=== PATIENT | male | born 1980 | race Caucasian/White ===

== ENCOUNTER 2020-04-16 09:18 | Outpatient (REF) | payer OTHER, SELFPAY ==
[2020-04-16 11:05] LABS: Alanine Aminotransferase 42 U/L (0-40); Albumin Level 4.3 g/dL (3.5-5.0); Alkaline Phosphatase 68 U/L (39-117); Anion Gap 12 (12-20); Aspartate Amino Transferase 31 U/L (5-37); Bilirubin Total 0.5 mg/dL (0.0-1.0); Blood Urea Nitrogen 11 mg/dL (9-16); Calcium 9.1 mg/dL (8.4-10.2); Carbon Dioxide 26 mmol/L (22-29); Chloride 105 mmol/L (96-108); Cholesterol 204 mg/dL; Estimated Glomerular Filt Rate > 60; Glucose Fasting 96 mg/dL (60-99); HDL Cholesterol 54 mg/dL; LDL Cholesterol Calculated 128 mg/dl; Potassium 4.6 mmol/l (3.3-5.1); Sodium 138 mmol/L (135-145); Total Protein 7.2 g/dL (6.5-8.0); Triglycerides 110 mg/dL
[2020-04-16 11:28] LABS: TSH reflex Free T4 1.24 mIU/mL (0.32-4.0)
== END 2020-04-16 09:19 | disposition home or self-care (01) ==
LOC: HO.LAB 09:18
PROVIDERS: PCP Internal Medicine; Visit Provider Internal Medicine
DX: E66.09 Other obesity due to excess calories (principal)
CPT/HCPCS: 36415; 80053; 80061; 84443

== ENCOUNTER 2020-12-03 08:22 | Emergency (ER) | payer OTHER, SELFPAY ==
--- NOTE | ~2020-12-03 | XR_ITS ---
EXAMINATION: XR HAND, LEFT CLINICAL INFORMATION: Schriever left index finger. COMPARISON: None TECHNIQUE: PA, lateral, and oblique views of the left hand. FINDINGS: There is no evidence of acute fracture or dislocation of the left hand. A single prong of a fishhook is seen within the soft tissues dorsal aspect of the second middle phalanx with no definite bony abnormality appreciated. Joint spaces are maintained. No erosive changes. XR/XR hand LT min 3V IMPRESSION: [place] within the dorsal soft tissues about the left second middle phalanx without underlying bony abnormality appreciated.
[2020-12-03 08:51] VITALS: BP 129/75; PULSE 67; RESP 16; TEMP 36.2; O2SAT 98; BMI 29.9
--- NOTE | 2020-12-03 08:57 | ED.SKABFB ---
HPI - Skin/Abscess/Foreign Bdy General Chief complaint: Skin/Abscess/Foreign Body Stated complaint: fish hook in finger Time Seen by Provider: 12/03/20 08:55 Source: patient Mode of arrival: ambulatory Limitations: no limitations History of Present Illness HPI narrative: 40-year-old male previously healthy here with fishhook to left index finger. Patient was cleaning his tackle box and the hook got stuck on his pants and when he went to grab it it punctured his left finger and he is unable to remove it. Tetanus not updated Related Data Allergies Allergy/AdvReac Type Severity Reaction Status Date / Time No Known Allergies Allergy Verified 12/03/20 08:51 Review of Systems Review of Systems: Yes all other systems are reviewed and are negative Constitutional: Constitutional: Reports no additional constitutional complaints, Denies body ache(s), Denies chills, Denies fever(s), Denies headache(s) and Denies weakness Eyes: Eyes: Reports no additional eye complaints and Denies change in vision ENT: Reports system reviewed and no additional complaints, except as documented, Denies dizziness, Denies headache(s), Denies nasal congestion, Denies nasal discharge and Denies neck pain Cardiovascular: Cardiovascular: Reports no additional cardiovascular complaints, Denies chest pain, Denies leg edema and Denies dyspnea Respiratory: Respiratory: Reports no additional respiratory complaints, Denies cough and Denies dyspnea Gastrointestinal: Gastrointestinal: Reports no additional gastrointestinal complaints, Denies abdominal pain, Denies diarrhea, Denies nausea and Denies vomiting Genitourinary: Genitourinary: Denies urinary incontinence Musculoskeletal: Musculoskeletal: Reports no additional musculoskeletal complaints, Denies back pain, Denies arthralgias, Denies joint swelling, Denies neck pain, Denies numbness and Denies tingling Comments: +puncture wound left index finger with hook present Integumentary/Breasts: Skin/Breast: Reports system reviewed and no additional complaints, except as docu and Denies rash Neurologic: Reports system reviewed and no additional complaints, except as documented, Denies Abnormal speech present, Denies dizziness, Denies headache(s), Denies numbness, Denies tingling and Denies weakness PMFSH Past Medical History Attestation statement: The following information was validated with the patient. Source: old records reviewed and nursing notes reviewed Medical History Kidney stone Social History Social History Smoked in Last 30 Days: No Use of substances other than those prescribed or required for medical reasons: No Advance Directives: No Advance Directives Information Provided: No Physical Exam Vital Signs: Vital Signs: Last Vital Signs Temp 97.2 F 12/03/20 08:51 Pulse 67 12/03/20 08:51 Resp 16 12/03/20 08:51 BP 129/75 12/03/20 08:51 Pulse Ox 98 12/03/20 08:51 Body Mass Index 29.9 Const: General: cooperative, healthy appearing, comfortable and no acute distress Orientation/consciousness: patient oriented x3 Limitations: no limitations HENMT: Head: Yes normal to inspection Ears: hearing grossly normal bilaterally General nose exam: Normal external nose present Face and sinus: Yes normal facial exam Mouth: Normal oral and palatal mucosa present Throat: Yes posterior oropharynx normal Eyes: General: appearance normal, both eyes and all related structures Pupils: Equal, round and reactive pupils present Neck: Neck: Yes normal visual inspection Chest: Chest palpation & inspection: normal inspection of the chest Resp: Effort & Inspection: normal respiratory effort Auscultation: clear to auscultation bilaterally Cardio: Rate: regular rate Rhythm: regular rhythm Peripheral pulses: Peripheral pulses 2+ throughout GI: Inspection: Yes normal to inspection Palpation (GI): Soft to palpation and nontender Auscultation: normal bowel sounds Back/Spine/Pelvis: Thoracic/Lumbar Spine: thoracic and lumbar spine normal to inspection Skin: General skin exam: no rashes or lesions noted Neuro: General: patient oriented x3, no focal motor deficits and normal sensation to monofilament Cranial nerves: Yes Equal, round and reactive pupils present Cognition (Neuro): normal cognition Speech: No Abnormal speech present Gait exam (Neuro): Normal gait present Motor exam (neuro): 5/5 motor strength present throughout Extrem: Other: To the dorsal distal aspect of the left index finger there is a fishing lower present with a single hook penetrating the finger. Full range of motion. Normal cap refill. Neurovascularly intact distally. General: Yes normal to inspection Course Course Course Narrative: 40-year-old male here with fishhook to the left index finger. Will need x-ray, tetanus updated. 1010-No bony abnormality on x-ray. Digital block used on digit. Small incision made and hook removed. Sutures placed. Reviewed worrisome signs/symptoms with patient and when to return to ED. Comfortable with discharge home. Procedures Foreign Body Removal Site: hand (left index rigoberto ) Description of foreign body: fish hook Technique: removal with forceps and incision made to facilitate removal Confirmed by:: direct visualization Complications: none Neurovascular: normal distal pulse, normal capillary fill, distal light touch sensation intact, distal motor function normal, no signs of compartment syndrome and no change from pre-procedure Laceration Laceration 1: Site: hand (dorsal index finger, surgically made with scalpel for removal FB) Side (If applicable): left Size (cm): 1 Description: linear Depth: simple, single layer Local Anesthetic: other anesthetic (digital block) Skin layer closed with: vicryl Size (cm): 6-0 Number of sutures: 2 Technique: simple, interrupted Nerve Block Nerve Block 1: Local Anesthetic: lidocaine 2% Amount of anesthesia used (mL): 5 Side: left (index finger ) Procedure Successful: Yes Patient Tolerated Procedure: well Complications: none MDM - Skin/Abscess/Foreign Bdy Medical Records Attestation: I reviewed the patient's medical records. Lab Data Attestation: I reviewed the patient's lab results. Imaging Data hand xray left: Attestation: I personally reviewed and interpreted this imaging study as follows: Radiologist's impression: XR/XR hand LT min 3V IMPRESSION: [place] within the dorsal soft tissues about the left second middle phalanx without underlying bony abnormality appreciated. Discharge Plan Discharge Clinical Impression: Foreign body Patient Disposition: Home, Self-Care Instructions: Soft Tissue Foreign Body (ED) Additional Instructions: Sutures out in 7-10 days Referrals: Padmini Huerta MD [Primary Care Provider] - 2 days Interventions: ED Discharge Assessment Last Done: 12/03/20 09:51 Discharge Date/Time: 12/03/20 09:52
[2020-12-03] MEDS: Diphth,Pertus(ACell),Tet Adult 0.5 ML SYRINGE IM (09:06)
[2020-12-03] MEDS: Lidocaine HCl 2 % MPF 5 ML VIAL SUBCUT (09:07)
== END 2020-12-03 09:52 | disposition home or self-care (01) ==
PROVIDERS: Emergency Provider Emergency Medicine; PCP Internal Medicine
DX: S61.241A Puncture wound with foreign body of left index finger without damage to nail, initial encounter (principal); W45.8XXA Other foreign body or object entering through skin, initial encounter; Y93.19 Activity, other involving water and watercraft; Y92.89 Other specified places as the place of occurrence of the external cause; Y99.8 Other external cause status
CPT/HCPCS: 10120; 20520; 64450; 73130; 90471; 90715; 99283; 99284

== ENCOUNTER 2022-08-22 08:00 | Outpatient (RCR) | payer OTHER, SELFPAY | END 2022-08-22 09:44 | disposition home or self-care (01) | LOC: HO.OT 08:00 | PROVIDERS: PCP Internal Medicine; Visit Provider Orthopaedic Surgery | DX: M72.0 Palmar fascial fibromatosis [Dupuytren] (principal) | CPT/HCPCS: 97110; 97140; 97166; 97530; 97760 ==

== ENCOUNTER 2022-11-17 08:59 | Outpatient (REF) | payer OTHER, SELFPAY ==
[2022-11-17 10:08] LABS: Alanine Aminotransferase 40 U/L (0-40); Albumin Level 4.4 g/dL (3.5-5.0); Alkaline Phosphatase 58 U/L (39-117); Anion Gap 14 (12-20); Aspartate Amino Transferase 29 U/L (5-37); Bilirubin Total 0.8 mg/dL (0.0-1.0); Blood Urea Nitrogen 15 mg/dL (9-16); Calcium 9.7 mg/dL (8.4-10.2); Carbon Dioxide 24 mmol/L (22-29); Chloride 105 mmol/L (96-108); Cholesterol 221 mg/dL; Estimated Glomerular Filt Rate > 60; Glucose Fasting 96 mg/dL (60-99); HDL Cholesterol 55 mg/dL; LDL Cholesterol Calculated 150 mg/dl; Potassium 4.5 mmol/L (3.3-5.1); Sodium 138 mmol/L (135-145); Total Protein 7.3 g/dL (6.5-8.0); Triglycerides 81 mg/dL
== END 2022-11-17 09:00 | disposition home or self-care (01) ==
LOC: HO.LAB 08:59
PROVIDERS: PCP Internal Medicine; Visit Provider Internal Medicine
DX: Z00.00 Encounter for general adult medical examination without abnormal findings (principal); E78.5 Hyperlipidemia, unspecified
CPT/HCPCS: 36415; 80053; 80061

== ENCOUNTER 2023-09-17 11:07 | Outpatient (AMB) | payer OTHER, SELFPAY ==
--- NOTE | 2023-09-17 12:14 | MHC.OFFWIV ---
Intake Vital Signs 09/17/23 12:19 Height 5 ft 11 in Weight 234 lb BMI 32.6 BP 120/72 Blood Pressure Location Lt brachial Position Sitting Pulse 79 Pulse Source Pulse Oximeter Temp 97.6 F Temp Source Temporal Artery Scan Pulse Oximetry (%) 97 Oxygen Delivery Method Room Air Intake Visit Reasons: EST/congeston and ear blockage ([phone]) Intake Note: Pt is here today for congestion and ear blockage, Pt noticed symptoms Patient Tobacco Use Status: Never used Tobacco Allergies No Known Allergies Allergy (Verified 09/17/23 12:34) Medication List - Last Reconciled 09/17/23 by Rogelio Kate MD dextroamphetamine-amphetamine 30 mg ER 1 cap PO DAILY Do you need a note to return to daycare/school/sports/work: No HPI EST/congeston and ear blockage ([phone]) HPI Details 42-year-old male presents to the office for a sick visit. Patient is reporting symptoms of congestion and sore throat. He had a viral respiratory infection a week ago with fever and chills. Though symptoms have subsided. Continues to have ear congestion. [facility] Medical History (Updated 10/17/22 @ 07:55 by Padmini Hunter MD) Obesity (BMI 30-39.9) Kidney stone Surgical History History of hand surgery History of lithotripsy Family History Father CVD (cardiovascular disease) Mother No problems noted. Social History Housing: House Alcohol intake: current Alcohol intake frequency: a few times a month Alcohol type: beer, wine and hard liquor Patient Tobacco Use Status: Never used Tobacco e-Cigarette/Vaping Use: Never Used Second Hand Smoke Exposure: No service: No Current occupational status: employed Current occupational exposures/hazards: No Cognitive needs: No Hearing needs: No Vision needs: No Physical Exam Vital Signs: Last Vital Signs Temp 97.6 F 09/17/23 12:19 Pulse 79 09/17/23 12:19 BP 120/72 09/17/23 12:19 Pulse Ox 97 09/17/23 12:19 Oxygen Delivery Method Room Air 09/17/23 12:19 BMI result Body Mass Index 32.6 Const General: cooperative and healthy appearing Nutritional Appearance: well nourished Orientation/consciousness: patient oriented x3 Limitations: no limitations HEENT Head: Yes normal to inspection Eyes General: appearance normal, both eyes and all related structures Neck Neck: Yes normal visual inspection Chest Chest palpation & inspection: normal palpation of entire chest wall Resp Effort & Inspection: normal respiratory effort Neuro General: patient oriented x3 Assessment & Plan Assessment & Plan (1) Upper respiratory tract infection: Code(s): J06.9 - Acute upper respiratory infection, unspecified Plan: No antibiotics needed. Self-limiting illness. If symptoms do not improve to follow-up here. Coding Level of Care Code Est Pt Level 3 (33562) Diagnoses Upper respiratory tract infection J06.9
[2023-09-17 12:19] VITALS: BP 120/72; PULSE 79; TEMP 36.4; O2SAT 97; BMI 32.6
== END 2023-09-17 13:46 | disposition home or self-care (01) ==
PROVIDERS: PCP Internal Medicine; Visit Provider Internal Medicine
DX: J06.9 Acute upper respiratory infection, unspecified (principal)
CPT/HCPCS: 99213

== ENCOUNTER 2023-10-23 07:22 | Outpatient (AMB) | payer OTHER, SELFPAY ==
[2023-10-23 07:31] VITALS: BP 132/80; BMI 33.2
--- NOTE | 2023-10-23 07:31 | A.OFFPC_ITS ---
Vital Signs 10/23/23 07:31 Height 5 ft 11 in Weight 238 lb BMI 33.2 BP 132/80 Blood Pressure Location Lt brachial Position Sitting Intake Visit Reasons: Aunn[place] P.E Intake Note: Patient here for an annual physical exam [employer] Required: No Accompanied by: Self / Same As Patient Allergies No Known Allergies Allergy (Verified 10/23/23 07:45) Medication List - Last Reconciled 10/23/23 by Padmini Hunter MD dextroamphetamine-amphetamine 30 mg ER 1 cap PO DAILY Tobacco use date assessed: 10/23/23 Dental Screening Dental Screen Date: 10/23/23 Did you have a dental visit in the last 12 months?: Yes Did you have a dental problem in the last 6 months where you did not have access to dental care?: No Was dental information given to patient?: Patient has dentist HPI HPI Comments History of Present Illness Details This is a 42-year-old male that comes for his physical exam. Denies any chest pain or shortness of breath. Has nephrolithiasis and follows with Urology every 6 months. Has elevated cholesterol that lipid panel will be recheck. No need for statins as of now. [facility] Medical History Obesity (BMI 30-39.9) Kidney stone Surgical History History of hand surgery History of lithotripsy Family History Father CVD (cardiovascular disease) Mother No problems noted. Social History Housing: House Alcohol intake: current Alcohol intake frequency: a few times a month Alcohol type: beer, wine and hard liquor Patient Tobacco Use Status: Never used Tobacco e-Cigarette/Vaping Use: Never Used Second Hand Smoke Exposure: No service: No Current occupational status: employed Current occupational exposures/hazards: No Cognitive needs: No Hearing needs: No Vision needs: No Questionnaire PHQ-9 Over the last 2 weeks, how often have you been bothered by any of the following problems? 1. Little interest or pleasure in doing things: not at all 2. Feeling down, depressed, or hopeless: not at all 3. Trouble falling or staying asleep, or sleeping too much: not at all 4. Feeling tired or having little energy: not at all 5. Poor appetite or overeating: not at all 6. Feeling bad about yourself - or that you are a failure or have let yourself or your family down: not at all 7. Trouble concentrating on things, such as reading the newspaper or watching television: not at all 8. Moving or speaking so slowly that other people could have noticed. Or the opposite - being so fidgety or restless that you have been moving around a lot more than usual: not at all 9. Thoughts that you would be better off or of hurting yourself in some way: not at all Total score: 0 Depression Screening Interpretation: Negative Depression Screening Done: Yes 61582 - PHQ-9 Billing: Yes Source: Developed by Drs. David Good, Yoli Al, Elian Hernandez and colleagues, with an educational marleni from [employer]. Thrive Questionnaire Date Thrive assessed: 10/23/23 I am a: Patient What is your living situation today?: I have a steady place to live Within the past 12 months, did the food you bought not last and you didn't have the money to get more?: Never true Within the past 12 months, did you worry whether your food would run out before you got money to buy more?: Never true Do you have trouble paying for medicines?: No Do you have trouble getting transportation to medical appointments?: No Do you have trouble paying your heating and electricity bill?: No Do you have trouble taking care of your child, family member or friend?: No Do you have trouble with day-to-day activities such as bathing, preparing meals, shopping, managing finances, etc.?: No Are you currently unemployed and looking for a job?: No Are you interested in more education?: No Please select the resources that you would like help with: None Currently or been in a relationship where the following occur: no concerns reported THRIVE Score: 0 AUDIT C Alcohol Use Questionnaire (AUDIT-C) 1. How often do you have a drink containing alcohol?: Monthly or less 2. How many drinks containing alcohol do you have on a typical day when you are drinking?: 1 or 2 3. How often do you have six or more drinks on one occasion?: Never Total Score: 1 Score Reviewed/Action Taken: No ZACKARY-7 AMB Questionnaire ZACKARY-7 Date ZACKARY - 7 assessed: 10/23/23 Feeling nervous, anxious, or on edge: 0 = Not at all Not being able to stop or control worryin = Not at all Worrying too much about different things: 0 = Not at all Trouble relaxin = Not at all Being so restless that it is hard to sit still: 0 = Not at all Becoming easily annoyed or irritable: 0 = Not at all Feeling afraid as if something awful might happen: 0 = Not at all Total ZACKARY-7 score (0-4 normal; 5-9 mild; 10-14 moderate; 15-21 severe): 0 Source: Developed by Drs. David Good, Yoli Al, Elian Hernandez and colleagues, with an educational marleni from [employer]. ZACKARY-7 Assessment Billing ZACKARY-7 Assessment Tool: ZACKARY-7 Assessment 31050 Review of Systems Const All systems reviewed & are unremarkable except as noted in HPI and below Eyes Reports no additional complaints, Denies change in vision and Denies other visual disturbances Card Denies chest pain at rest, Denies chest pain with activity, Denies edema, Denies irregular heart rhythm, Denies claudication, Denies dyspnea, Denies dyspnea on exertion, Denies orthopnea, Denies paroxysmal nocturnal dyspnea and Denies slow heart rate Resp Denies cough, Denies dyspnea and Denies dyspnea on exertion GI Denies abdominal pain, Denies change in bowel habits, Denies excessive flatus, Denies nausea and Denies vomiting Denies urinary hesitancy, Denies urinary incontinence and Denies urinary urgency Physical exam (Primary Care) Vital Signs: Last Vital Signs BP 132/80 10/23/23 07:31 BMI result Body Mass Index 33.2 Tobacco/Smoking Status: Tobacco use Status Tobacco use date assessed 10/23/23 10/23/23 07:38 Patient Tobacco Use Status Never used Tobacco 10/23/23 07:38 e-Cigarette/Vaping Use Never Used 10/23/23 07:38 PHQ-9: PHQ-9 Score PHQ-9: Total score 0 10/23/23 07:50 Depression Screening Interpretation: Negative Thrive Assessment: Date of Thrive Assessment Date Thrive assessed 10/23/23 10/23/23 07:38 Currently or been in a relationship where the following occur: no concerns reported Const Orientation/consciousness: patient oriented x3 HENMT Head: Yes normal to inspection, Yes normocephalic and Yes atraumatic Ears: external ears normal Eyes General: appearance normal, both eyes and all related structures Eyelids: Yes eyelids normal Conjunctivae: conjunctivae normal Neck Neck: Yes normal visual inspection and Yes supple Resp Effort & Inspection: normal respiratory effort Auscultation: clear to auscultation bilaterally Cardio Jugular venous distension: no JVD Rate: regular rate Rhythm: regular rhythm Heart sounds: S1 normal heart sound present and S2 normal heart sound present GI Inspection: Yes normal to inspection Palpation (GI): Soft to palpation and nontender Auscultation: normal bowel sounds Skin General skin exam: no rashes or lesions noted Neuro General: patient oriented x3 and no focal motor deficits Extrem General: Yes full ROM Psych Appearance: grossly normal Assessment and Plan Assessment & Plan (1) Encounter for physical examination: Code(s): Z00.00 - Encounter for general adult medical examination without abnormal findi ngs Plan: Repeat in a year. Orders: Orders Lipid Panel Today Z00.00 - Encounter for general adult medical examination without abnormal findings Comprehensive [place]. Panel Fast Today Z00.00 - Encounter for general adult medical examination without abnormal findings Coding Level of Care Code Est Pt Prev Care 40-64y(19822) Diagnoses Encounter for physical examination Z00.00 Additional Codes ZACKARY-7 Assessment Billing - ZACKARY-7 Assessment Tool: ZACKARY-7 Assessment 14428 ([id number]) Time Spent (min) 30
== END 2023-10-23 07:53 | disposition home or self-care (01) ==
PROVIDERS: Visit Provider Internal Medicine
DX: Z00.00 Encounter for general adult medical examination without abnormal findings (principal)
CPT/HCPCS: 99396

== ENCOUNTER 2023-12-30 12:06 | Outpatient (REF) | payer OTHER, SELFPAY ==
[2023-12-30 12:58] LABS: Alanine Aminotransferase 55 U/L (0-40); Albumin Level 4.4 g/dL (3.5-5.0); Alkaline Phosphatase 57 U/L (39-117); Anion Gap 10 (12-20); Aspartate Amino Transferase 46 U/L (5-37); Bilirubin Total 0.5 mg/dL (0.0-1.0); Blood Urea Nitrogen 12 mg/dL (9-16); Calcium 9.5 mg/dL (8.4-10.2); Carbon Dioxide 27 mmol/L (22-29); Chloride 107 mmol/L (96-108); Cholesterol 219 mg/dL (<200); Estimated Glomerular Filt Rate > 60; Glucose Fasting 98 mg/dL (60-99); HDL Cholesterol 51 mg/dL (>40); LDL Cholesterol Calculated 144 mg/dL (<100); Potassium 4.4 mmol/L (3.3-5.1); Sodium 140 mmol/L (135-145); Total Protein 7.7 g/dL (6.5-8.0); Triglycerides 124 mg/dL (<150)
== END 2023-12-30 12:07 | disposition home or self-care (01) ==
LOC: HO.LAB 12:06
PROVIDERS: PCP Internal Medicine; Visit Provider Internal Medicine
DX: Z00.00 Encounter for general adult medical examination without abnormal findings (principal)
CPT/HCPCS: 36415; 80053; 80061

== ENCOUNTER 2024-10-28 07:29 | Outpatient (AMB) | payer OTHER, SELFPAY ==
--- OUTSIDE RECORDS SUMMARY | 2024-10-28 07:31 | XMS_ITS | Clinical Summary ---
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 Do not crush or chew. Active Active Problems Problem Noted Date Diagnosed Date Chronic pain of left knee 11/11/2020 Immunizations Name Administration Dates Next Due Influenza, trivalent (IIV3), split virus (single-dose) PF 04/27/2020 Family History Medical History Relation Comments Heart disease Brother Heart disease Father Relation Status Comments Brother Father Mother Alive Social History Tobacco Use Types Packs/Day Years Used Date Smoking Tobacco: Never Smokeless Tobacco: Never Alcohol Use Standard Drinks/Week Comments Yes 0 (1 standard drink = 0.6 oz pur e alcohol) AUDIT-C Answer Date Recorded Q1: How often do you have a drink containing alc ohol? Monthly or less 12/22/2020 Average Number of Drinks Not on file 021 Frequency of Binge Drinking Not on file 12/13 Sex and Gender Information Value Date Recorded Sex Assigned at Not on file Legal Sex Male 8:55 AM MST Gender Identity Not on file Sexual Orientation Not on file Last Filed Vital Signs Vital Sign Reading Time Taken Comments Blood Pressure 135/85 12/08/2019 12:25 PM EDT Pulse 74 12/08/2019 12:25 PM EDT Temperature 36.7 ??C (98.1 ??F) 12/08/2019 12:25 PM E DT Respiratory Rate 16 12/08/2019 12:25 PM EDT Oxygen Saturation 96% 12/08/2019 12:25 PM EDT Inhaled Oxygen Concentration - - Weight 97.3 kg (214 lb 6.4 oz) 12/08/2019 12:25 PM EDT Height 179.6 cm (5' 10.71 ) 07/24/2019 11:33 AM EST Body Mass Index 30.15 07/24/2019 11:33 AM EST Plan of Treatment Health Maintenance Due Date Last Done Comments Hepatitis C Screening 1979 PHQ-9 Depression Screen 1991 Complete Annual HRA 11/02/1997 ZACKARY-7 Anxiety Screen 11/02/1997 DTaP,Tdap,and Td Vaccines (1 - Tdap) 11/02/1998 Annual Preventive Exam 04/12/2021 0, 04/08/2019, 03/31/2018, Additional history exists COVID-19 Vaccine (2023-2 5 season) 2024 Influenza Vaccine (Season Ended) 2025 04/27/20 20 RSV Vaccine (SCDM) (1 - 1-do se 75+ series) 11/02/2054 Insurance [address] [place] [id number] [employer] Care Teams Glass Block Installer Relationship Specialty Start Date End Date Padmini Huerta PCP - General 07/24/19
[2024-10-28 07:32] VITALS: BP 128/88; PULSE 78; O2SAT 98; BMI 33.6
--- NOTE | 2024-10-28 07:32 | MHC.PC.OV ---
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 Accompanied by: Self / Same As Patient Allergies No Known Allergies Allergy (Verified 10/28/24 07:39) Medication List - Last Reconciled 10/28/24 by Padmini Hunter MD dextroamphetamine-amphetamine 30 mg ER 1 cap PO DAILY Tobacco use date assessed: 10/28/24 Dental Screening Dental Screen Date: 10/28/24 Did you have a dental visit in the last 12 months?: Yes Did you have a dental problem in the last 6 months where you did not have access to dental care?: No Was dental information given to patient?: Patient has dentist HPI HPI Comments History of Present Illness Details The patient is a 43-year-old male presenting for a wellness visit for a physical examination. The patient's medical history is significant for Attention-Deficit/Hyperactivity Disorder (ADHD) managed with Adderall 30 mg. The patient reports that the Adderall which has not cause elevated blood pressure or insomnia as he takes it early in the morning. The patient denies any allergies to medication. Past surgical history includes left hand surgery and lithotripsy for kidney stones. The patient notes a routine blood work performed last year which showed mildly elevated liver enzymes and a slight increase in cholesterol levels compared to previous years. However, he mentions that no medication was required to address the cholesterol levels as it was deemed better than results from 2022. The patient does not have a smoking history but consumes alcoholic beverages, such as beer, wine, or hard liquor, a few times monthly, typically one or two times per weekend. He denies experiencing anxiety but admits to occasional issues with sleep and feelings of fatigue. Regarding family history, the patient's father had heart disease and has since passed, whereas the mother reportedly has no medical problems. - Tdap vaccination updated in 2020; next dose due in 2030 - Encouraged monitoring of body composition to differentiate between muscle gain and fat - Blood pressure noted as good; regular monitoring recommended - Advised routine recheck of liver enzymes and cholesterol due to past mild elevation [facility] Medical History Obesity (BMI 30-39.9) Kidney stone Surgical History History of hand surgery History of lithotripsy Family History Father CVD (cardiovascular disease) Mother No problems noted. Social History Housing: House Alcohol intake: current Alcohol intake frequency: a few times a month Alcohol type: beer, wine and hard liquor Patient Tobacco Use Status: Never used Tobacco Tobacco use type: Cigarette e-Cigarette/Vaping Use: Never Used Second Hand Smoke Exposure: No service: No Current occupational status: employed Current occupational exposures/hazards: No Cognitive needs: No Hearing needs: No Vision needs: No Questionnaire PHQ-9 Over the last 2 weeks, how often have you been bothered by any of the following problems? 1. Little interest or pleasure in doing things: not at all 2. Feeling down, depressed, or hopeless: not at all 3. Trouble falling or staying asleep, or sleeping too much: several days 4. Feeling tired or having little energy: several days 5. Poor appetite or overeating: not at all 6. Feeling bad about yourself - or that you are a failure or have let yourself or your family down: not at all 7. Trouble concentrating on things, such as reading the newspaper or watching television: not at all 8. Moving or speaking so slowly that other people could have noticed. Or the opposite - being so fidgety or restless that you have been moving around a lot more than usual: not at all 9. Thoughts that you would be better off or of hurting yourself in some way: not at all Total score: 2 Depression Screening Interpretation: Negative Depression Screening Done: Yes 71017 - PHQ-9 Billing: Yes Source: Developed by Drs. David Good, Yoli Al, Elian Hernandez and colleagues, with an educational marleni from [employer]. Thrive Questionnaire Date Thrive assessed: 10/28/24 I am a: Patient What is your living situation today?: I have a steady place to live Within the past 12 months, did the food you bought not last and you didn't have the money to get more?: Never true Within the past 12 months, did you worry whether your food would run out before you got money to buy more?: Never true Do you have trouble paying for medicines?: No Do you have trouble getting transportation to medical appointments?: No Do you have trouble paying your heating and electricity bill?: No Do you have trouble taking care of your child, family member or friend?: No Do you have trouble with day-to-day activities such as bathing, preparing meals, shopping, managing finances, etc.?: No Are you currently unemployed and looking for a job?: No Are you interested in more education?: No Please select the resources that you would like help with: None Currently or been in a relationship where the following occur: No concerns reported THRIVE Score: 0 AUDIT C Alcohol Use Questionnaire (AUDIT-C) 1. How often do you have a drink containing alcohol?: Monthly or less 2. How many drinks containing alcohol do you have on a typical day when you are drinking?: 1 or 2 3. How often do you have six or more drinks on one occasion?: Never Total Score: 1 Score Reviewed/Action Taken: No ZACKARY-7 AMB Questionnaire ZACKARY-7 Date ZACKARY - 7 assessed: 10/28/24 Feeling nervous, anxious, or on edge: 0 = Not at all Not being able to stop or control worryin = Not at all Worrying too much about different things: 0 = Not at all Trouble relaxin = Not at all Being so restless that it is hard to sit still: 0 = Not at all Becoming easily annoyed or irritable: 0 = Not at all Feeling afraid as if something awful might happen: 0 = Not at all Total ZACKARY-7 score (0-4 normal; 5-9 mild; 10-14 moderate; 15-21 severe): 0 Source: Developed by Drs. David Good, Yoli Al, Elian Hernandez and colleagues, with an educational marleni from [employer]. ZACKARY-7 Assessment Billing ZACKARY-7 Assessment Tool: ZACKARY-7 Assessment 74496 Review of Systems Const All systems reviewed & are unremarkable except as noted in HPI and below Card Denies chest pain at rest, Denies chest pain with activity, Denies edema, Denies irregular heart rhythm, Denies claudication, Denies dyspnea, Denies dyspnea on exertion, Denies orthopnea, Denies paroxysmal nocturnal dyspnea and Denies slow heart rate Resp Denies cough, Denies dyspnea and Denies dyspnea on exertion GI Denies abdominal pain, Denies change in bowel habits, Denies excessive flatus, Denies nausea and Denies vomiting Denies urinary hesitancy, Denies urinary incontinence and Denies urinary urgency Musc Denies atrophy, Denies deformity and Denies limited range of motion Physical exam (Primary Care) Vital Signs: Last Vital Signs Pulse 78 10/28/24 07:32 BP 128/88 10/28/24 07:32 Pulse Ox 98 10/28/24 07:32 Oxygen Delivery Method Room Air 10/28/24 07:32 BMI result Body Mass Index 33.6 Tobacco/Smoking Status: Tobacco use Status Tobacco use date assessed 10/28/24 10/28/24 07:36 Patient Tobacco Use Status Never used Tobacco 10/28/24 07:36 Tobacco use type Cigarette 10/28/24 07:36 e-Cigarette/Vaping Use Never Used 10/28/24 07:36 PHQ-9: PHQ-9 Score PHQ-9: Total score 2 10/28/24 07:42 Depression Screening Interpretation: Negative Thrive Assessment: Date of Thrive Assessment Date Thrive assessed 10/28/24 10/28/24 07:36 Currently or been in a relationship where the following occur: No concerns reported [facility] Head: Yes normal to inspection, Yes normocephalic and Yes atraumatic Ears: external ears normal Eyes General: appearance normal, both eyes and all related structures Eyelids: Yes eyelids normal Conjunctivae: conjunctivae normal Neck Neck: Yes normal visual inspection and Yes supple Resp Effort & Inspection: normal respiratory effort Auscultation: clear to auscultation bilaterally Cardio Jugular venous distension: no JVD Rate: regular rate Rhythm: regular rhythm Heart sounds: S1 normal heart sound present and S2 normal heart sound present GI Inspection: Yes normal to inspection Palpation (GI): Soft to palpation and nontender Auscultation: normal bowel sounds Skin General skin exam: no rashes or lesions noted Neuro General: no focal motor deficits Extrem General: Yes full ROM Psych Appearance: grossly normal Coding Level of Care Code Est Pt Prev Care 40-64y(68124) Diagnoses Encounter for physical examination Z00.00 Additional Codes ZACKARY-7 Assessment Billing - ZACKARY-7 Assessment Tool: ZACKARY-7 Assessment 80177 ([id number]) PHQ-9 - 61655 - PHQ-9 Billing: Yes ([id number]) Time Spent (min) 30 Assessment & Plan Assessment & Plan (1) Encounter for physical examination: Code(s): Z00.00 - Encounter for general adult medical examination without abnormal findings Category: Medical Plan Body composition monitoring was recommended to achieve balanced weight management through differentiating muscle versus fat mass.: Patient was informed and verbally consented to the use of an ambient scribe for clinic note documentation during this visit. I discussed the continued prescription of Adderall for ADHD management, outlining its benefits in managing energy levels with no side effect impact on blood pressure or sleep pattern for this patient. Concerns were addressed regarding potential side effects previously experienced, and the patient was advised to report any changes in symptoms. Suggestions about lifestyle adjustments were discussed, especially exercise impact on body weight in context with muscle gain versus fat increment. Regarding mildly elevated liver enzymes and cholesterol found last year, advice included lifestyle measures such as dietary and physical activity regulation. The patient consented to follow-up blood work for further evaluation within the next three months to affirm current liver and cholesterol status. Family history of heart disease was considered, endorsing a proactive approach to cardiovascular health through lifestyle management. Orders: Orders Lipid Panel Today E78.5 - Hyperlipidemia, unspecified Comprehensive [place]. Panel Fast Today Z00.00 - Encounter for general adult medical examination without abnormal findings Patient Instructions: - Take Adderall 30 mg as scheduled early in the morning - Monitor blood pressure regularly - Maintain Tdap vaccination schedule - Undergo fasting blood work for liver and cholesterol evaluation within three months - Limit alcoholic beverages to moderation, ideally not exceeding occasional weekend consumption - Engage in regular physical exercise such as [employer]
== END 2024-10-28 07:50 | disposition home or self-care (01) ==
LOC: HO.HMCH 07:30
PROVIDERS: PCP Internal Medicine; Visit Provider Internal Medicine
DX: Z00.00 Encounter for general adult medical examination without abnormal findings (principal)

== ENCOUNTER → 2024-10-28 07:29 | Outpatient (BNVA) | payer OTHER, SELFPAY | PROVIDERS: PCP Internal Medicine; Visit Provider Internal Medicine | DX: Z00.00 Encounter for general adult medical examination without abnormal findings (principal); F90.9 Attention-deficit hyperactivity disorder, unspecified type; Z79.899 Other long term (current) drug therapy | CPT/HCPCS: 96127 ==

== ENCOUNTER 2024-11-07 09:57 | Outpatient (REF) | payer OTHER, SELFPAY ==
--- OUTSIDE RECORDS SUMMARY | 2024-11-07 09:59 | XMS_ITS | Clinical Summary ---
Author Organization [facility] Address [address] [place] [address] Care Team Providers Care Bag Machine Helper Name Role Phone Padmini Huerta Primary Care [...] on file Legal Sex Male 8:55 AM [facility] Gender Identity Not on file Sexual Orientation [...] - 1-do se 75+ series) 11/02/2054 Insurance [employer] Care Teams Bag Machine Helper Relationship Specialty Start Date End Date Padmini Huerta PCP - General 07/24/19
[2024-11-07 11:15] LABS: Alanine Aminotransferase 41 U/L (0-40); Albumin Level 4.3 g/dL (3.5-5.0); Alkaline Phosphatase 73 U/L (39-117); Anion Gap 13 (12-20); Aspartate Amino Transferase 37 U/L (5-37); Bilirubin Total 0.5 mg/dL (0.0-1.0); Blood Urea Nitrogen 18 mg/dL (9-16); Calcium 9.4 mg/dL (8.4-10.2); Carbon Dioxide 22 mmol/L (22-29); Chloride 107 mmol/L (96-108); Cholesterol 221 mg/dL (<200); Estimated Glomerular Filt Rate > 60; Glucose Fasting 92 mg/dL (60-99); HDL Cholesterol 58 mg/dL (>40); LDL Cholesterol Calculated 142 mg/dL (<100); Potassium 4.3 mmol/L (3.3-5.1); Sodium 138 mmol/L (135-145); Total Protein 7.6 g/dL (6.5-8.0); Triglycerides 109 mg/dL (<150)
== END 2024-11-07 09:58 | disposition home or self-care (01) ==
LOC: HO.LAB 09:57
PROVIDERS: PCP Internal Medicine; Visit Provider Internal Medicine
DX: Z00.00 Encounter for general adult medical examination without abnormal findings (principal); E78.5 Hyperlipidemia, unspecified
CPT/HCPCS: 36415; 80053; 80061